=== PATIENT | female | born 1985 | race African-American/Black ===

== ENCOUNTER 2016-09-01 14:59 | Emergency (ER) | payer OTHER ==
[~2016-09-01] VITALS: Ht 167.6 cm; Wt 72.6 kg
[~2016-09-01 14:59] MED LIST: BACTRIM DS TAB1 EACH PO; DICLEGIS DR 101 EACH PO; NAPROSYN500 MG PO; NORCO 5-325 TA1 EACH PO; ONDANSETRON HCL4 M2 PO; PANTOPRAZOLE SO40 M1 PO; PHENERGAN 25 MG25 M1 PO; PHENERGAN50 MG RC; ZOFRAN ODT4 MG PO
[2016-09-01] MEDS ORDERED: DICLEGIS DR 101 EACH PO (15:48)
[2016-09-01 16:31] LABS: ABSOLUTE NEUTROPHILS 6.7 thou/uL (1.4-8.2); BASOPHILS 0.3 % (0.0-2.0); HEMATOCRIT 33.6 % (37.0-47.0); HEMOGLOBIN 11.6 gm/dL (12.0-15.0); LYMPHOCYTES 16.9 % (24.0-44.0); MCH 32.9 pg (26.0-34.0); MCHC 34.7 % (28.0-37.0); MCV 94.7 fL (80.0-100.0); MONOCYTES 6.6 % (1.0-8.0); PLATELET COUNT 239 thou/uL (150-400); POLYS 75.2 % (36.0-66.0); RBC 3.54 mil/uL (4.20-5.00); RDW 13.1 % (10.5-14.5); WBC 8.9 thou/uL (4.0-11.0)
[2016-09-01 16:33] LABS: MANUAL DIFF NO
[2016-09-01 16:44] LABS: CALCIUM 8.5 mg/dL (8.5-10.1); CREATININE 0.5 mg/dL (0.6-1.3); POTASSIUM 4.1 mmol/L (3.5-5.1)
[2016-09-01 17:33] LABS: URINE BILIRUBIN NEGATIVE (Negative); URINE BLOOD NEGATIVE (Negative); URINE COLOR YELLOW; URINE GLUCOSE-RANDOM* NEGATIVE (Negative); URINE KETONES NEGATIVE (Negative); URINE NITRITE NEGATIVE (Negative); URINE PROTEIN (DIPSTICK) TRACE (Negative); URINE SPECIFIC GRAVITY >= 1.030 (1.003-1.035)
[2016-09-01 17:47] VITALS: BP 105/61
== END 2016-09-01 17:48 | disposition home or self-care (01) ==
LOC: ER 14:59
PROVIDERS: Physician Assistant
DX: O21.9 Vomiting of pregnancy, unspecified (principal); Z3A.14 14 weeks gestation of pregnancy; Z90.89 Acquired absence of other organs

== ENCOUNTER 2018-03-19 17:53 | Emergency (ER) | payer OTHER ==
[~2018-03-19] VITALS: Ht 167.6 cm; Wt 87.1 kg
[2018-03-19 18:46] LABS: ABSOLUTE NEUTROPHILS 10.8 thou/uL (1.4-8.2); BASOPHILS 0.1 % (0.0-2.0); HEMATOCRIT 41.4 % (37.0-47.0); HEMOGLOBIN 13.9 gm/dL (12.0-15.0); LYMPHOCYTES 3.2 % (24.0-44.0); MCH 29.8 pg (26.0-34.0); MCHC 33.7 g/dL (28.0-37.0); MCV 88.5 fL (80.0-100.0); MONOCYTES 3.2 % (1.0-8.0); PLATELET COUNT 240 thou/uL (150-400); POLYS 91.5 % (36.0-66.0); RBC 4.68 mil/uL (4.20-5.00); WBC 11.8 thou/uL (4.0-11.0)
[2018-03-19 19:19] LABS: ALBUMIN 3.6 g/dL (3.4-5.0); CALCIUM 8.5 mg/dL (8.5-10.1); CREATININE 1.1 mg/dL (0.6-1.0); POTASSIUM 3.8 mmol/L (3.5-5.1); TOTAL BILIRUBIN 1.5 mg/dL (<0.1-1.0); TOTAL PROTEIN 7.3 g/dL (6.4-8.2)
[2018-03-19] MEDS ORDERED: NORCO 10-325 T1 EACH PO (20:52)
[2018-03-19] MEDS ORDERED: AUGMENTIN 500-1 EACH PO (20:52)
[2018-03-19] MEDS ORDERED: ONDANSETRON HCL4 M2 PO (20:53)
[2018-03-19 22:27] VITALS: BP 102/76
== END 2018-03-19 22:28 | disposition home or self-care (01) ==
LOC: ER 17:53
PROVIDERS: Physician Assistant
DX: S10.96XA Insect bite of unspecified part of neck, initial encounter (principal); N18.9 Chronic kidney disease, unspecified; L03.221 Cellulitis of neck; R00.0 Tachycardia, unspecified; Z90.49 Acquired absence of other specified parts of digestive tract; W57.XXXA Bitten or stung by nonvenomous insect and other nonvenomous arthropods, initial encounter; Y92.89 Other specified places as the place of occurrence of the external cause; Y93.89 Activity, other specified; Y99.8 Other external cause status

== ENCOUNTER 2018-03-20 22:18 | Inpatient (IN) | payer OTHER ==
[~2018-03-20] VITALS: Ht 167.6 cm; Wt 87.1 kg
--- NOTE | ~2018-03-20 | HC ---
[facility] [place] [address] CONSULTATION Name: KRUPATRIXIE R Room #: 221-P [facility] IN M.R.#: [id number] Admission: 03/20/18 Attend Phys: Gogo Christopher Discharge: Date of : 89 Report #: [id number] THIS REPORT FOR: //name// CC: [facility] physician/PCP Gogo Christopher DATE OF SERVICE: 03/21/2018 INFECTIOUS DISEASES CONSULTATION REASON FOR CONSULTATION: I was asked to evaluate concerning left neck soft tissue infection. HISTORY OF PRESENT ILLNESS: The patient is a 33-year-old female who is 2 months , have been . [place] well until 2 days prior to her presentation where she had acute onset of left anterior lateral neck pain. She felt like she had been bitten by an insect. She did not see any specific insect on her. There is no drainage from the specific area. Pain was intense. Then developed fever, chills and sweats. Presented to the Emergency Room, was placed on Augmentin. Dismissed only to return again with increased pain, fever and chills. She had temperature up to 103 degrees. Pain is extended from her left neck anteriorly down to her anterior chest. Denies any headache. She has had some pharyngitis symptoms. No difficulty swallowing solids or liquids. No recent dental work. No painful teeth. No history of thyroid disease. Denies any cough or sputum production. No back pain. No nausea, vomiting or diarrhea. No dysuria or frequency. No arthritis symptoms. After admission, she was placed on vancomycin and metronidazole. She was given morphine and noticed diffuse pruritus after this. She has had erythroderma. Noted some improvement with Benadryl. REVIEW OF SYSTEMS: CONSTITUTIONAL: She has had no change in her weight. She has felt well prior to this acute illness. Has had some conjunctival injection in the right eye, which has drain some clear fluid. No visual changes otherwise. No pain in the eye. No hearing issues. No oral lesions. Appetite has been reasonable. NECK: As noted above. PULMONARY: As above. CARDIOVASCULAR: Unremarkable. GASTROINTESTINAL: As above. GENITOURINARY: Unremarkable. Continues to breastfeed up until she became ill and has not since. She states she has been trying to wean her child off breast milk. MUSCULOSKELETAL: Unremarkable. NEUROLOGIC: Unremarkable. PSYCHIATRIC: Unremarkable. ALLERGY AND IMMUNOLOGY: Unremarkable. [address] [address] CONSULTATION Name: KRUPATRIXIE Benedict Room #: 221-P [facility] IN M.R.#: [id number] Admission: 03/20/18 Attend Phys: Gogo Christopher Discharge: Date of : 89 Report #: [id number] ALLERGIES: None prior to her admission. SUBSEQUENTLY, MORPHINE. MEDICATIONS: Zofran, [place], Augmentin. Now on vancomycin and metronidazole. PAST MEDICAL HISTORY: Bacterial vaginosis, urinary tract infection, cholecystectomy. FAMILY HISTORY: Noncontributory. SOCIAL HISTORY: Nonsmoker, no significant alcohol intake. PHYSICAL EXAMINATION: VITAL SIGNS: Temperature is 99.4, pulse 105, blood pressure 108/66, maximum temperature today was 100 degrees. GENERAL: The patient was alert and cooperative. Appeared in no distress when I first came into this year, although she had significant amount of pain when trying to move involving her left neck. SKIN: With erythroderma. EXTREMITIES: She had marked erythema over her anterior chest with this extending mostly over her left neck. There was swelling in the left neck region. This was exquisitely tender with some fluctuance. I did not appreciate any adenopathy. Range of motion of the neck was normal, although she did have some tenderness in the left anterior lateral neck when moving. She did guard this area. HEENT: Conjunctival injection on the right. Mouth unremarkable. No tender teeth or tonsillar swelling. LUNGS: Clear without rub. Good excursion. HEART: Regular, without murmur, gallop or rub. ABDOMEN: Soft, nontender, no hepatosplenomegaly or mass. BREASTS: Engorged no fluctuance and no area of definite cellulitis, although she had erythroderma across her chest. The tenderness is mostly located in the left upper chest region, more toward her clavicle. No adenopathy in the axilla or groin. EXTREMITIES: Unremarkable. NEUROLOGIC: Cranial nerves and extremities unremarkable. Mood normal. LABORATORY DATA: CT scan of the neck done on 03/19/2018 showed left neck edema, which involved the skin and soft tissues and down beneath the sternocleidomastoid. Lactate was 1.1. Sodium 137, potassium 3.8, bicarbonate 22, creatinine 0.8, bilirubin 1.5, alkaline phosphatase 83, ALT 24. Hemoglobin 11.3, WBC 7.4, differential unremarkable, platelet count 156,000. Blood cultures are negative to date. IMPRESSION: A 33-year-old with left neck soft tissue infection. I am concerned about the amount of edema that was reported on her previous CAT scan into the [facility] [address] [place] [address] CONSULTATION Name: TRIXIE GENTILE Room #: 221-P ADM IN M.R.#: [id number] Admission: 03/20/18 Attend Phys: Gogo Christopher Discharge: Date of : 89 Report #: [id number] deep tissues. This would be unusual with a spider bite. Considering there was no necrosis of the skin, I could see no bite pena in the skin. I do not see any evidence of dental infection at this time. Tonsils seemed reasonable. Would be concerned about strep infection, although her level of toxicity is minimal at this time other than her discomfort. Her white count is normal. Lactate is normal. PLAN: Recommend continuing aggressive antibiotic coverage with vancomycin, Unasyn and clindamycin. We will continue to hold her morphine for she did have a reaction to this. She has been on Benadryl to help control her itching. We will screen for MRSA group A strep and reimage her soft tissues involving the neck as well as the chest. I have discussed with nursing staff. We will monitor closely, if any change in condition, will need further surgical evaluation. It is noted that General Surgery has seen the patient earlier today. <ELECTRONICALLY SIGNED> By: Rafael Ha MD 03/22/18 1655 [id number] [id number] Rafael Ha MD /nt
--- NOTE | ~2018-03-20 | HC ---
[facility] [address] [place] [address] CONSULTATION Name: TRIXIE GENTILE Room #: 426-P ADM IN M.R.#: [id number] Admission: 03/20/18 Attend Phys: Gogo Christopher Discharge: Date of : 89 Report #: [id number] THIS REPORT FOR: //name// CC: [facility] physician/PCP Gogo Christopher DATE OF SERVICE: 03/21/2018 REFERRING PROVIDER: Gogo Christopher MD REASON FOR CONSULT: Left neck cellulitis and pain. HISTORY OF PRESENT ILLNESS: The patient is a 33-year-old female who sustained a reported spider bite to the left neck on Wednesday, at which time she was seen on Wednesday in the Emergency Room and given Augmentin and pain medication. The patient received 2 doses of Augmentin and was feeling well on Wednesday until the evening when she presented for worsening pain and associated chills. She reports seeing brown spiders on the floor of her new home and has had significant swelling and tightness in the left neck to upper chest region for which she has been admitted, and I am asked to evaluate. CT scan of the neck did show extensive skin thickening and edema around the left neck and upper chest extending into tissues deep to the sternocleidomastoid muscle and superior mediastinum. No evidence of an abscess, however. It is for that reason that I am asked to evaluate from a surgical standpoint. PAST MEDICAL HISTORY: She has had bacterial vaginosis, urinary tract infection and prior cholecystectomy. HOME MEDICATIONS: None except for recently she was given the Augmentin, Zofran and [place]. ALLERGIES: No known drug allergies. SOCIAL HISTORY: The patient does not utilize tobacco, alcohol or illicit drugs. FAMILY HISTORY: Reviewed and noncontributory. REVIEW OF SYSTEMS: GENERAL: The patient denies nocturnal fevers, but recently she has been having chills. HEENT: No change in vision or change in hearing. NECK: No swelling or difficulty swallowing. HEART: No chest pain or palpitations. LUNGS: No cough or shortness of breath. ABDOMEN: No nausea, no vomiting. GENITOURINARY: No dysuria or hematuria. [facility] [address] [place] [address] CONSULTATION Name: TRIXIE GENTILE Benedict Room #: 426-P [facility] IN M.R.#: [id number] Admission: 03/20/18 Attend Phys: Gogo Christopher Discharge: Date of : 89 Report #: [id number] ENDOCRINE: No polyuria, polydipsia. HEMATOLOGIC: No history of bleeding or easy bruising. EXTREMITIES: No history of weakness or limited range of motion. NEUROLOGIC: No history of syncope or near syncopal episodes. SKIN AND INTEGUMENT: No history of abnormal lesions or moles. PSYCHIATRIC: No history of anxiety or depression. PHYSICAL EXAMINATION: VITAL SIGNS: Temperature 99.4. She does have a T-max of 100.0 last evening. Her pulse is 105, respirations 18, blood pressure 108/66. She stands 5 feet 6 inches tall and weighs 192 pounds. GENERAL: She is alert and oriented, in no acute distress. HEENT: Normocephalic, atraumatic. Pupils equal, round, reactive to light. NECK: Slightly swollen in the left neck with induration and exquisite pain to palpation into the upper chest and around to the left shoulder region. HEART: Tachycardic, but regular rhythm. LUNGS: Clear to auscultation bilaterally. ABDOMEN: Soft, nontender, nondistended. GENITOURINARY: Normal external female genitalia. EXTREMITIES: No clubbing, cyanosis or edema. NEUROLOGIC: Cranial nerves 2-12 are grossly intact. PSYCHIATRIC: Normal mood and affect. SKIN AND INTEGUMENT: No other abnormal lesions or moles. LABORATORY AND X-RAY DATA: CBC shows white blood cell count of 7.4 thousand, hemoglobin 11.3, platelets 156,000. Creatinine 0.8, albumin was 3.6 upon admission yesterday. Total bilirubin was slightly elevated at 1.5, lactic acid normal at 1.1 and 1.3. Urine negative. CT scan of the neck showed extensive skin thickening, subcutaneous edema and fluid in the anterior left lower neck and upper chest extending below the sternocleidomastoid muscle and into the superior mediastinum. No evidence of a drainable abscess. ASSESSMENT AND PLAN: A 33-year-old female with a reported spider bite with brown spiders on the floor at home and findings of significant edema in the left neck and upper chest extending into the mediastinum and into the deep tissues of the neck. The patient has been started on broad spectrum antibiotics under the direction of Infectious Disease and we will continue to monitor her progression and her clinical coarse throughout. Hopefully she will not necessitate incisional drainage of this and if so, I may defer to ENT as this would need to be carried deep into the sternocleidomastoid muscle and possibly even thoracic surgery would be necessary if this does form an abscess in her mediastinum. To that note, we will likely repeat a CT scan in a period of 2-3 days to evaluate for resolution. [address] [address] CONSULTATION Name: TRIXIE GENTILE Room #: 426-P ADM IN M.R.#: [id number] Admission: 03/20/18 Attend Phys: Gogo Christopher Discharge: Date of : 89 Report #: [id number] I sincerely appreciate this consult. I will follow closely and leave any further recommendations in the patient's chart as appropriate. <ELECTRONICALLY SIGNED> By: Justa Ramirez MD, FACS 03/21/18 1622 1312 [id number] Justa Ramirez MD, FACS /nt
--- NOTE | ~2018-03-20 | 2DMMODE ---
[facility] [address] [place] [address] 2 D/M-MODE ECHOCARDIOGRAM Name: TRIXIE GENTILE Room #: 221-P ADM IN .R.#: [id number] Admission: 03/20/18 Attend Phys: Gogo Ahumada Discharge: Date of : 89 Date of Service: 03/25/18 1102 Report #: [id number] THIS REPORT FOR: //name// APPROVED REPORT Study performed: 03/25/2018 09:45:41 EXAM: Comprehensive 2D, Doppler, and color-flow Echocardiogram Patient Location: Bedside Room #: 221 Status: routine BSA: 1.94 HR: 106 bpm BP: 91/50 mmHg Rhythm: NSR Other Information Study Quality: Good Indications Infection:Rule out subacute bacterial endocarditis Fever 2D Dimensions RVDd: 31.33 mm LVEF(%): 55.72 (>50%) IVSd: 10.06 (7-11mm) LVOT Diam: 22.38 (18-24mm) LVDd: 55.41 mm PWd: 10.27 (7-11mm) Ascending Ao: 31.70 (22-36mm) LVDs: 39.12 (25-40mm) Aortic Root: 32.33 mm IVC: 22.00 mm Peace's LVEF: 55.72 % Volumes Left Atrial Volume (Systole) Single Plane 4CH: 36.57 mL Single Plane 2CH: 52.24 mL LA ESV Index: 24.00 mL/m2 Aortic Valve AoV Peak Anthony.: 1.36 m/s AO Peak Gr.: 7.38 mmHg LVOT Max P.69 mmHg LVOT Max V: 1.08 m/s ROBERTO CARLOS Vmax: 3.13 cm2 Pulmonary Valve PV Peak Anthony.: 1.07 m/s PV Peak Gr.: 4.58 mmHg [facility] [place] [place] [address] 2 D/M-MODE ECHOCARDIOGRAM Name: TRIXIE GENTILE Room #: 221-P [facility] IN .R.#: [id number] Admission: 03/20/18 Attend Phys: Gogo Ahumada Discharge: Date of : 89 Date of Service: 03/25/18 1102 Report #: [id number] Tricuspid Valve TR Peak Anthony.: 2.52 m/s TR Peak Gr.: 25.43 mmHg PA Pressure: 35.00 mmHg Left Ventricle The left ventricle is normal size. There is normal LV segmental wall motion. There is normal left ventricular wall thickness. Left ventricular systolic function is normal. The left ventricular ejection fraction is within the normal range. LVEF is 55-60%. The left ventricular diastolic function is normal. Right Ventricle The right ventricle is normal size. The right ventricular systolic function is normal. Atria The left atrium size is normal. The right atrium size is normal. Aortic Valve The aortic valve is normal in structure. No aortic regurgitation is present. There is no aortic valvular stenosis. Mitral Valve The mitral valve is normal in structure. There is no mitral valve regurgitation noted. No evidence of mitral valve stenosis. Tricuspid Valve The tricuspid valve is normal in structure. There is trace tricuspid regurgitation. Estimated PAP 35 mmHg. There is mild pulmonary hypertension. Pulmonic Valve The pulmonary valve is normal in structure. There is no pulmonic valvular regurgitation. Great Vessels The aortic root is normal in size. IVC is normal in size and collapses with >50% inspiration Pericardium Trace anterior pericardial effusion. <Conclusion> [facility] [address] [place] [address] 2 D/M-MODE ECHOCARDIOGRAM Name: KRUPATRIXIE Benedict Room #: 221-P [facility] IN .R.#: [id number] Admission: 03/20/18 Attend Phys: Gogo Ahumada Discharge: Date of : 89 Date of Service: 03/25/18 1102 Report #: [id number] The left ventricle is normal size. The left ventricle is normal size. LVEF is 55-60%. The aortic valve is normal in structure. The mitral valve is normal in structure. The tricuspid valve is normal in structure. The pulmonary valve is normal in structure. Trace anterior pericardial effusion. <ELECTRONICALLY SIGNED> By: Mick Estrada MD 03/25/18 1102 01 01 Mick Estrada MD /INF
[~2018-03-20 22:18] MED LIST changes: +AUGMENTIN 500-1 EACH PO; +NORCO 10-325 T1 EACH PO
[2018-03-20 22:38] VITALS: BP 127/71
[2018-03-20 23:05] LABS: ABSOLUTE NEUTROPHILS 8.9 thou/uL (1.4-8.2); BASOPHILS 0.2 % (0.0-2.0); EOSINOPHILS 3.2 % (0.0-3.0); HEMATOCRIT 39.3 % (37.0-47.0); HEMOGLOBIN 13.3 gm/dL (12.0-15.0); LYMPHOCYTES 5.1 % (24.0-44.0); MCH 29.9 pg (26.0-34.0); MCHC 33.8 g/dL (28.0-37.0); MCV 88.4 fL (80.0-100.0); MONOCYTES 3.8 % (1.0-8.0); PLATELET COUNT 193 thou/uL (150-400); POLYS 87.7 % (36.0-66.0); RBC 4.45 mil/uL (4.20-5.00); RDW 19.3 % (10.5-14.5); WBC 10.2 thou/uL (4.0-11.0)
[2018-03-20 23:20] LABS: ALBUMIN 3.5 g/dL (3.4-5.0); CALCIUM 8.9 mg/dL (8.5-10.1); DIRECT BILIRUBIN 0.3 mg/dL (<0.1-0.3); TOTAL BILIRUBIN 1.6 mg/dL (<0.1-1.0); TOTAL PROTEIN 7.8 g/dL (6.4-8.2)
[2018-03-20 23:21] LABS: POTASSIUM 3.8 mmol/L (3.5-5.1)
[2018-03-20 23:56] VITALS: BP 127/71
[2018-03-21 00:09] VITALS: BP 111/64
[2018-03-21 00:40] LABS: ANISOCYTOSIS 2+; POLYCHROMASIA 1+
[2018-03-21 05:00] VITALS: BP 107/56
[2018-03-21 06:53] LABS: HEMATOCRIT 33.1 % (37.0-47.0); MCH 30.4 pg (26.0-34.0); MCHC 34.1 g/dL (28.0-37.0); MCV 89.3 fL (80.0-100.0); RBC 3.7 mil/uL (4.20-5.00); WBC 7.4 thou/uL (4.0-11.0)
[2018-03-21 06:57] LABS: HEMOGLOBIN 11.3 gm/dL (12.0-15.0)
[2018-03-21 07:06] LABS: CALCIUM 7.9 mg/dL (8.5-10.1); CREATININE 0.8 mg/dL (0.6-1.0); POTASSIUM 3.3 mmol/L (3.5-5.1)
[2018-03-21 07:38] VITALS: BP 108/66
[2018-03-21 16:00] VITALS: BP 105/65
[2018-03-21 23:41] VITALS: BP 118/61
[2018-03-22 07:57] VITALS: BP 111/65
[2018-03-22 11:04] LABS: EOSINOPHILS 3.5 % (0.0-3.0); HEMATOCRIT 31.8 % (37.0-47.0); HEMOGLOBIN 11.1 gm/dL (12.0-15.0); LYMPHOCYTES 6.5 % (24.0-44.0); MCH 30.8 pg (26.0-34.0); MCHC 34.7 g/dL (28.0-37.0); MCV 88.7 fL (80.0-100.0); MONOCYTES 3.2 % (1.0-8.0); PLATELET COUNT 156 thou/uL (150-400); POLYS 86.8 % (36.0-66.0); RBC 3.59 mil/uL (4.20-5.00); RDW 18.3 % (10.5-14.5); WBC 8.1 thou/uL (4.0-11.0)
[2018-03-22 13:09] LABS: ANISOCYTOSIS 2+
[2018-03-22 20:24] VITALS: BP 119/65
[2018-03-23 08:41] VITALS: BP 98/56
[2018-03-23 23:29] VITALS: BP 106/58
[2018-03-24 07:35] VITALS: BP 107/60
[2018-03-24 22:42] VITALS: BP 91/50
[2018-03-25 06:59] LABS: HEMATOCRIT 23.9 % (37.0-47.0); MCH 31.3 pg (26.0-34.0); MCHC 34.9 g/dL (28.0-37.0); MCV 89.6 fL (80.0-100.0); PLATELET COUNT 155 thou/uL (150-400); RBC 2.66 mil/uL (4.20-5.00); RDW 15.7 % (10.5-14.5); WBC 12.6 thou/uL (4.0-11.0)
[2018-03-25 07:06] LABS: HEMOGLOBIN 8.3 gm/dL (12.0-15.0)
[2018-03-25 07:45] VITALS: BP 106/64
[2018-03-25 08:34] LABS: BASOPHILS 0.1 % (0.0-2.0); EOSINOPHILS 2.2 % (0.0-3.0); LYMPHOCYTES 8.5 % (24.0-44.0); MONOCYTES 4.5 % (1.0-8.0); POLYS 84.7 % (36.0-66.0)
[2018-03-25 08:54] LABS: ALBUMIN 2.2 g/dL (3.4-5.0); CALCIUM 7.7 mg/dL (8.5-10.1); CREATININE 0.8 mg/dL (0.6-1.0); TOTAL BILIRUBIN 1.9 mg/dL (<0.1-1.0); TOTAL PROTEIN 5.4 g/dL (6.4-8.2)
[2018-03-25 08:55] LABS: POTASSIUM 2.9 mmol/L (3.5-5.1)
[2018-03-25 20:05] VITALS: BP 115/73
[2018-03-26 07:36] VITALS: BP 121/76
[2018-03-26 19:00] VITALS: BP 119/73
[2018-03-27 08:15] LABS: HEMATOCRIT 22.9 % (37.0-47.0); HEMOGLOBIN 7.9 gm/dL (12.0-15.0); MCH 31.9 pg (26.0-34.0); MCHC 34.6 g/dL (28.0-37.0); MCV 91.9 fL (80.0-100.0); RBC 2.49 mil/uL (4.20-5.00); RDW 15.9 % (10.5-14.5); WBC 13.8 thou/uL (4.0-11.0)
[2018-03-27 08:33] LABS: ALBUMIN 2.6 g/dL (3.4-5.0); CALCIUM 8.2 mg/dL (8.5-10.1); CREATININE 0.8 mg/dL (0.6-1.0); PHOSPHORUS 4.4 mg/dL (2.5-4.9)
[2018-03-27 08:34] VITALS: BP 119/60
[2018-03-27 08:38] LABS: POTASSIUM 2.7 mmol/L (3.5-5.1)
[2018-03-27 19:58] VITALS: BP 121/83
[2018-03-28 07:54] VITALS: BP 125/73
[2018-03-28 07:54] LABS: CREATININE 0.8 mg/dL (0.6-1.0); POTASSIUM 3.2 mmol/L (3.5-5.1)
[2018-03-28] MEDS ORDERED: PREDNISONE 20 M20 M1 PO (08:15)
[2018-03-28] MEDS ORDERED: HYDROCORTISONE120 M1 TOP (08:15)
[2018-03-28] MEDS ORDERED: KEFLEX500 M1 PO (08:15)
[2018-03-28 08:17] VITALS: BP 125/73
== END 2018-03-28 09:20 | disposition home or self-care (01) | DRG 917 ==
LOC: ER 22:18 → EROBS 22:57 → 4E 22:57 → SICU 22:57 → 4E 23:42 → SICU 03-21 18:30
PROVIDERS: Emergency Medicine; Hospitalist; Nurse Practitioner Family; Specialist
DX: T63.331A Toxic effect of venom of brown recluse spider, accidental (unintentional), initial encounter (principal); A41.9 Sepsis, unspecified organism; L03.313 Cellulitis of chest wall; L02.213 Cutaneous abscess of chest wall; L03.221 Cellulitis of neck; E87.6 Hypokalemia; L29.9 Pruritus, unspecified; D64.9 Anemia, unspecified; Z90.49 Acquired absence of other specified parts of digestive tract; Z88.5 Allergy status to narcotic agent
CPT/HCPCS: 10084; 15002

== ENCOUNTER 2020-06-02 15:40 | Emergency (ER) | payer OTHER ==
[~2020-06-02] VITALS: Ht 167.6 cm; Wt 88.5 kg
[~2020-06-02 15:40] MED LIST changes: +HYDROCORTISONE120 M1 TOP; +KEFLEX500 M1 PO; +PREDNISONE 20 M20 M1 PO
[2020-06-02 16:07] LABS: URINE BILIRUBIN 1+ (Negative); URINE BLOOD 1+ (Negative); URINE CLARITY CLEAR; URINE COLOR YELLOW; URINE GLUCOSE-RANDOM* NEGATIVE (Negative); URINE KETONES 2+ (Negative); URINE LEUKOCYTES-REFLEX TRACE (Negative); URINE NITRITE-REFLEX NEGATIVE (Negative); URINE PROTEIN (DIPSTICK) TRACE (Negative); URINE SPECIFIC GRAVITY >= 1.030 (1.005-1.035)
[2020-06-02 16:11] LABS: ICTOTEST (BILI CONFIRMATORY) Positive (Negative)
[2020-06-02 16:14] LABS: MUCUS >6 Heavy strn/LPF (None Seen); SQUAMOUS >10 Many /LPF (0-3)
[2020-06-02 16:16] LABS: CASTS None Seen /LPF (None Seen); CRYSTALS None Seen /LPF (None Seen); URINE RBC 3-10 Few /HPF (0-2); URINE WBC-REFLEX 6-15 Few /HPF (0-5)
[2020-06-02 16:28] LABS: ABSOLUTE NEUTROPHILS 7.5 thou/uL (1.4-8.2); BASOPHILS 0.2 % (0.0-2.0); EOSINOPHILS 0.4 % (0.0-3.0); HEMATOCRIT 37.8 % (37.0-47.0); HEMOGLOBIN 13.1 gm/dL (12.0-15.0); LYMPHOCYTES 15.3 % (24.0-44.0); MCH 32.2 pg (26.0-34.0); MCHC 34.6 g/dL (28.0-37.0); MONOCYTES 6.7 % (1.0-8.0); PLATELET COUNT 239 thou/uL (150-400); POLYS 77.4 % (36.0-66.0); RBC 4.06 mil/uL (4.20-5.00); RDW 13.2 % (10.5-14.5); WBC 9.7 thou/uL (4.0-11.0)
[2020-06-02 16:34] LABS: CALCIUM 9.3 mg/dL (8.5-10.1); CREATININE 0.7 mg/dL (0.6-1.0); POTASSIUM 3.3 mmol/L (3.5-5.1)
[2020-06-02 16:41] LABS: TOTAL BILIRUBIN 1.1 mg/dL (0.2-1.0); TOTAL PROTEIN 8.6 g/dL (6.4-8.2)
[2020-06-02] MEDS ORDERED: PHENERGAN 25 MG25 M1 PO (17:38)
[2020-06-02] MEDS ORDERED: POTASSIUM20 PO (17:40)
[2020-06-02 17:46] VITALS: BP 118/68
== END 2020-06-02 17:50 | disposition home or self-care (01) ==
LOC: ER 15:40
PROVIDERS: Physician Assistant
DX: O21.0 Mild hyperemesis gravidarum (principal); Z90.49 Acquired absence of other specified parts of digestive tract; Z79.899 Other long term (current) drug therapy; Z3A.01 Less than 8 weeks gestation of pregnancy

== ENCOUNTER 2020-06-16 10:27 | Emergency (ER) | payer OTHER ==
[~2020-06-16] VITALS: Ht 167.6 cm; Wt 86.2 kg
[~2020-06-16 10:27] MED LIST changes: +POTASSIUM20 PO
[2020-06-16 11:14] LABS: URINE BLOOD 2+ (Negative); URINE CLARITY CLEAR; URINE COLOR YELLOW; URINE GLUCOSE-RANDOM* NEGATIVE (Negative); URINE KETONES 3+ (Negative); URINE LEUKOCYTES-REFLEX TRACE (Negative); URINE NITRITE-REFLEX NEGATIVE (Negative); URINE PROTEIN (DIPSTICK) 1+ (Negative); URINE SPECIFIC GRAVITY >= 1.030 (1.005-1.035)
[2020-06-16 11:17] LABS: ICTOTEST (BILI CONFIRMATORY) Negative (Negative); URINE BILIRUBIN NEGATIVE (Negative); URINE REDUCING SUBSTANCE NEGATIVE
[2020-06-16 11:32] LABS: ABSOLUTE NEUTROPHILS 6.3 thou/uL (1.4-8.2); BASOPHILS 0.3 % (0.0-2.0); EOSINOPHILS 0.3 % (0.0-3.0); HEMATOCRIT 39.9 % (37.0-47.0); HEMOGLOBIN 13.3 gm/dL (12.0-15.0); LYMPHOCYTES 13.2 % (24.0-44.0); MCH 31.2 pg (26.0-34.0); MCHC 33.4 g/dL (28.0-37.0); MCV 93.5 fL (80.0-100.0); PLATELET COUNT 275 thou/uL (150-400); POLYS 78.2 % (36.0-66.0); RBC 4.27 mil/uL (4.20-5.00); RDW 13.4 % (10.5-14.5); WBC 8.1 thou/uL (4.0-11.0)
[2020-06-16 12:09] LABS: BACTERIA-REFLEX 1-9 Few /HPF (None Seen); CASTS None Seen /LPF (None Seen); CRYSTALS None Seen /LPF (None Seen); SQUAMOUS 4-10 Moderate /LPF (0-3); URINE WBC-REFLEX 0-5 Rare /HPF (0-5)
[2020-06-16 12:09] LABS: CALCIUM 9.4 mg/dL (8.5-10.1); CREATININE 0.7 mg/dL (0.6-1.0); POTASSIUM 3.2 mmol/L (3.5-5.1)
[2020-06-16 12:10] LABS: URINE RBC 0-2 Rare /HPF (0-2)
[2020-06-16 12:51] VITALS: BP 115/74
[2020-06-17] MEDS ORDERED: FAMOTIDINE 20 M20 MG PO (12:02)
[2020-06-17] MEDS ORDERED: PROMETHAZINE PO (12:05)
[2020-06-17] MEDS ORDERED: REGLAN 5 MG TAB5 MG PO (15:28)
[2020-06-17] MEDS ORDERED: DICLEGIS DR 101 EACH PO (15:28)
[2020-06-17] MEDS ORDERED: PROMS25 WY RECTAL (15:28)
== END 2020-06-16 12:50 | disposition home or self-care (01) ==
LOC: ER 10:27
PROVIDERS: Nurse Practitioner
DX: O21.9 Vomiting of pregnancy, unspecified (principal); Z90.49 Acquired absence of other specified parts of digestive tract; Z79.899 Other long term (current) drug therapy; Z3A.08 8 weeks gestation of pregnancy

== ENCOUNTER 2020-06-17 11:50 | Emergency (ER) | payer OTHER ==
[~2020-06-17] VITALS: Ht 167.6 cm; Wt 86.2 kg
[2020-06-17] MEDS ORDERED: FAMOTIDINE 20 M20 MG PO (12:02)
[2020-06-17] MEDS ORDERED: PROMETHAZINE PO (12:05)
[2020-06-17 12:47] LABS: HEMATOCRIT 39.4 % (37.0-47.0); HEMOGLOBIN 13.7 gm/dL (12.0-15.0); MCH 32.1 pg (26.0-34.0); MCHC 34.8 g/dL (28.0-37.0); MCV 92.3 fL (80.0-100.0); RBC 4.27 mil/uL (4.20-5.00); RDW 13.2 % (10.5-14.5); WBC 8.4 thou/uL (4.0-11.0)
[2020-06-17 12:49] LABS: URINE BLOOD 2+ (Negative); URINE CLARITY SL CLOUDY; URINE COLOR YELLOW; URINE GLUCOSE-RANDOM* NEGATIVE (Negative); URINE KETONES 3+ (Negative); URINE LEUKOCYTES-REFLEX TRACE (Negative); URINE NITRITE-REFLEX NEGATIVE (Negative); URINE PROTEIN (DIPSTICK) TRACE (Negative); URINE SPECIFIC GRAVITY >= 1.030 (1.005-1.035); URINE UROBILINOGEN 0.2 E.U./dl (0.2-1.0)
[2020-06-17 12:56] LABS: CALCIUM 9.7 mg/dL (8.5-10.1); CREATININE 0.7 mg/dL (0.6-1.0); POTASSIUM 3.2 mmol/L (3.5-5.1)
[2020-06-17 12:57] LABS: ICTOTEST (BILI CONFIRMATORY) Negative (Negative); URINE BILIRUBIN NEGATIVE (Negative)
[2020-06-17 13:00] LABS: URINE REDUCING SUBSTANCE NEGATIVE
[2020-06-17 13:41] LABS: SQUAMOUS >10 Many /LPF (0-3)
[2020-06-17 13:42] LABS: HYALINE CASTS 0-3 Few /LPF (None Seen); URINE RBC 3-10 Few /HPF (0-2); URINE WBC-REFLEX 6-15 Few /HPF (0-5)
[2020-06-17 13:43] LABS: CRYSTALS None Seen /LPF (None Seen); MUCUS 4-6 Moderate strn/LPF (None Seen)
[2020-06-17] MEDS ORDERED: PROMS25 WY RECTAL (15:28)
[2020-06-17] MEDS ORDERED: REGLAN 5 MG TAB5 MG PO (15:28)
[2020-06-17] MEDS ORDERED: DICLEGIS DR 101 EACH PO (15:28)
[2020-06-17 16:37] VITALS: BP 133/73
== END 2020-06-17 16:36 | disposition home or self-care (01) ==
LOC: ER 11:50
PROVIDERS: Physician Assistant
DX: O21.0 Mild hyperemesis gravidarum (principal); Z90.49 Acquired absence of other specified parts of digestive tract; Z79.899 Other long term (current) drug therapy; Z3A.09 9 weeks gestation of pregnancy